=== PATIENT | female | born 1975 | race Caucasian/White ===

== ENCOUNTER 2017-03-31 14:23 | Emergency (ER) | payer OTHER ==
[2017-03-31 14:57] VITALS: BP 117/52
--- NOTE | 2017-03-31 15:03 | UC ---
Back Pain HPI - HPI Summary HPI Summary: 41 year old female presents with complains of right red eye and back pain. - History of Current Complaint Chief Complaint: UCBackPain Stated Complaint: BACK PAIN/RIGHT EYE COMPLAINT Time Seen by Provider: 03/31/17 14:58 Hx Obtained From: Patient Hx Last Menstrual Period: 28 DAYS AGO Onset/Duration: Sudden Onset Timing: Constant Severity Initially: Moderate Severity Currently: Moderate Pain Scale Used: 0-10 Numeric - 7 Character: Sharp Aggravating Factor(s): Movement, Bending Alleviating Factor(s): Rest - Allergies/Home Medications Allergies/Adverse Reactions: Allergies Allergy/AdvReac Type Severity Reaction Status Date / Time No Known Allergies Allergy Verified 03/31/17 14:57 PMH/Surg Hx/FS Hx/Imm Hx Previously Healthy: Yes - Surgical History Surgical History: Yes Surgery Procedure, Year, and Place: C SECTION 05/12/16 - Family History Known Family History: Positive: None Family History: no reported cardio vascular issues in family lineage - Social History Alcohol Use: None Substance Use Type: None Smoking Status (MU): Never Smoked Tobacco - Immunization History Most Recent Influenza Vaccination: 2012 Review of Systems Constitutional: Negative Skin: Negative Eyes: Eye Redness ENT: Negative Respiratory: Negative Cardiovascular: Negative Gastrointestinal: Negative Genitourinary: Negative Motor: Negative Neurovascular: Negative Musculoskeletal: Other: - lower back pain Neurological: Negative Psychological: Negative All Other Systems Reviewed And Are Negative: Yes Physical Exam Triage Information Reviewed: Yes Vital Signs: Initial Vital Signs Temp 37.7 C 03/31/17 14:49 Pulse 76 03/31/17 14:49 Resp 16 03/31/17 14:49 BP 117/52 03/31/17 14:49 Pulse Ox 100 03/31/17 14:49 Vital Signs Reviewed: Yes Eyes: Positive: Conjunctiva Inflamed ENT Exam: Normal Dental Exam: Normal Neck exam: Normal Neck: Positive: 1 Respiratory Exam: Normal Cardiovascular Exam: Normal Abdominal Exam: Normal Musculoskeletal: Positive: Other: - lower back pain Neurological Exam: Normal Psychological Exam: Normal Skin Exam: Normal Back Pain Course/Dx - Differential Dx/Diagnosis Provider Diagnoses: right corneal ulcer. lower back pain Discharge - Discharge Plan Condition: Stable Disposition: HOME Prescriptions: Ciprofloxacin 0.3% OPTH.AVE* [Cipro 0.3% Opth*] 1 drop RIGHT EYE Q2H #1 btl Ibuprofen TAB* [Motrin TAB* 800 MG] 800 mg PO Q6H #30 tab Methocarbamol TAB* [Robaxin 500 MG TAB*] 500 mg PO TID PRN #30 tab PRN Reason: Spasms - Back Patient Education Materials: Muscle Spasm (ED), Eye Pain (ED) Referrals: Dangelo Easley MD [Medical Doctor] - Marilu Bates MD [Primary Care Provider] -
== END 2017-03-31 15:31 | disposition home or self-care (01) ==
LOC: UCCORT 14:23
DX: H16.001 Unspecified corneal ulcer, right eye (principal); M54.5 Low back pain
CPT/HCPCS: 99212; G0463

== ENCOUNTER 2017-07-19 08:06 | Emergency (ER) | payer OTHER ==
[2017-07-19 10:17] VITALS: BP 140/70
--- NOTE | 2017-07-19 10:29 | UC ---
Respiratory Complaint HPI - HPI Summary HPI Summary: Cough and congestion for about 4 days. She has had intermittent fever. She has no chronic lung disease. - History of Current Complaint Chief Complaint: UCGeneralIllness Stated Complaint: FEVER COUGH Time Seen by Provider: 07/19/17 10:09 Hx Obtained From: Patient Hx Last Menstrual Period: 07/05/17 ?: No Onset/Duration: Gradual Onset, Lasting Days Timing: Constant Severity Initially: Moderate Severity Currently: Moderate Pain Intensity: 2 Character: Cough: Nonproductive Aggravating Factors: Deep Breaths, Recumbent Position Alleviating Factors: Upright Position, Spontaneous Resolution Associated Signs And Symptoms: Positive: Fever, URI, Nasal Congestion - Allergies/Home Medications Allergies/Adverse Reactions: Allergies Allergy/AdvReac Type Severity Reaction Status Date / Time No Known Allergies Allergy Verified 07/19/17 10:11 Home Medications: Home Medications Acetaminophen 2 tab PO Q6HR PRN 07/19/17 [History Confirmed 07/19/17] PMH/Surg Hx/FS Hx/Imm Hx Previously Healthy: Yes - Surgical History Surgical History: Yes Surgery Procedure, Year, and Place: C SECTION x 3 - Family History Known Family History: Positive: None Family History: no reported cardio vascular issues in family lineage - Social History Alcohol Use: None Substance Use Type: None Smoking Status (MU): Never Smoked Tobacco - Immunization History Most Recent Influenza Vaccination: 2012 Review of Systems ENT: Sore Throat, Sinus Congestion Respiratory: Cough All Other Systems Reviewed And Are Negative: Yes Physical Exam Triage Information Reviewed: Yes Appearance: Well-Appearing, No Pain Distress, Well-Nourished Vital Signs: Initial Vital Signs Temp 98.6 F 07/19/17 10:12 Pulse 85 07/19/17 10:12 Resp 20 07/19/17 10:12 BP 140/70 07/19/17 10:12 Pulse Ox 100 07/19/17 10:12 Vital Signs Reviewed: Yes Eyes: Positive: Conjunctiva Clear ENT: Positive: Normal ENT inspection, Pharynx normal, TMs normal, Uvula midline. Negative: Nasal congestion, Nasal drainage, TM bulging, TM dull, TM red, Tonsillar swelling, Tonsillar exudate, Trismus, Sinus tenderness Neck: Positive: Supple, Nontender, No Lymphadenopathy Respiratory: Positive: Lungs clear, Normal breath sounds, No respiratory distress, No accessory muscle use. Negative: Respiratory distress, Decreased breath sounds, Accessory muscle use, Crackles, Rhonchi, Stridor, Wheezing Cardiovascular: Positive: No Murmur, Pulses Normal, Brisk Capillary Refill Abdomen Description: Positive: No Organomegaly, Soft. Negative: Distended, Guarding Musculoskeletal: Positive: ROM Intact, No Edema Neurological: Positive: Alert, Muscle Tone Normal. Negative: Fatigued Psychological: Positive: Age Appropriate Behavior Skin: Negative: rashes UC Diagnostic Evaluation - Laboratory O2 Sat by Pulse Oximetry: 100 Respiratory Course/Dx - Course Course Of Treatment: URI. Possible flu. 4 days into symptoms. Supportive care. - Differential Dx/Diagnosis Provider Diagnoses: uri. viral illness. Discharge - Discharge Plan Condition: Good Disposition: HOME Patient Education Materials: Upper Respiratory Infection (ED) Referrals: Marilu Bates MD [Primary Care Provider] -
== END 2017-07-19 11:22 | disposition home or self-care (01) ==
LOC: UCCORT 08:06
DX: J06.9 Acute upper respiratory infection, unspecified (principal)
CPT/HCPCS: 99211; G0463

== ENCOUNTER 2018-03-18 10:50 | Emergency (ER) | payer OTHER ==
[2018-03-18 11:15] VITALS: BP 120/64
--- NOTE | 2018-03-18 11:32 | UC ---
Ear Complaint HPI - HPI Summary HPI Summary: Pt presents for eval of right ear pain and discharge. Pt stes she recently finished a 10 day course for OM. pt states she had discharge and pain - which improved slightly, no painful again. Pt denies fever, chills No sinus pain, PND. Pt has been using cotton ball for diranage. No odor. No jaw pain. No rollins. No other complaints Pt's medications reviewed this visit - History of Current Complaint Chief Complaint: UCGeneralIllness Stated Complaint: EAR COMPLAINT Time Seen by Provider: 03/18/18 11:25 Hx Obtained From: Patient Hx Last Menstrual Period: 07/05/17 ?: No Onset/Duration: Gradual Onset Pain Intensity: 4 - Allergies/Home Medications Allergies/Adverse Reactions: Allergies Allergy/AdvReac Type Severity Reaction Status Date / Time No Known Allergies Allergy Verified 03/18/18 11:11 PMH/Surg Hx/FS Hx/Imm Hx Previously Healthy: Yes - Surgical History Surgical History: Yes Surgery Procedure, Year, and Place: C SECTION x 3 - Family History Known Family History: Positive: Other - non contributory Family History: no reported cardio vascular issues in family lineage - Social History Lives: With Family Alcohol Use: None Substance Use Type: None Smoking Status (MU): Never Smoked Tobacco - Immunization History Most Recent Influenza Vaccination: 2012 Review of Systems Constitutional: Negative ENT: Ear Ache All Other Systems Reviewed And Are Negative: Yes Physical Exam - Summary Physical Exam Summary: Vital Signs Reviewed: Yes A+Ox3, no distress Eyes: Conjunctiva Clear, ANEL. EOM intact and full ENT: Hearing grossly normal Right TM not visualized - pt with thick, white discharge and edema of canal mild TTP no mastoid pain left TM wnl clear, mmoist, uvula midline, no exudate, no erythema Neck: Positive: Supple Respiratory: Positive: No respiratory distress, No accessory muscle use + CTA throughout no w/r Cardiovascular: RRR nl s1, s2 no m/r CBT <2 sec abd soft + BS nt/nd no guarding, no distension Musculoskeletal Exam: KWOK x 4 without difficulty Strength Intact, ROM Intact Neurological: Positive: Alert, + sensation throughout Psychological: Positive: Normal Response To Family Skin: Positive: no rash, no ecchymosis Triage Information Reviewed: Yes Vital Signs: Initial Vital Signs Temp 98.8 F 10/07/18 11:09 Pulse 74 03/18/18 11:09 Resp 15 03/18/18 11:09 BP 120/64 03/18/18 11:09 Pulse Ox 100 03/18/18 11:09 Ear Complaint Course/Dx - Course Course Of Treatment: Pt presents for reevaluation of right ear pt with drainage and discomfort. recent completion of abx oral for OM. VSS. on exam pt with thick white discharge in canals with erythema and edema. nno mastiod pain. will Rx ciprodex. motrin/apap. Pt's family goe to Dr. Mon - will schedule a follow-up if sx persist. pt comfortable and sun greement with plan - Differential Dx/Diagnosis Provider Diagnoses: right otitis externa Discharge - Sign-Out/Discharge Documenting (check all that apply): Patient Departure All imaging exams completed and their final reports reviewed: No Studies - Discharge Plan Condition: Stable Disposition: HOME Prescriptions: Ciproflox/Dexameth OTIC.SUSP* [Ciprodex OTIC.SUSP*] 2 drop .SEE ORDER TID #1 btl Patient Education Materials: Otitis Externa (DC) Referrals: [facility] Ent Provider,[facility] D [Ayalogic, APPLICATION, OTHER] - Marilu Bates MD [Primary Care Provider] - Bill Mon MD [Medical Doctor] - Additional Instructions: - Use ear drops as prescribed for 7 days - Okay to alternate ibuprofen (Advil, motrin)and tylenol every 3 hours for pain. Take with food - It may take 10-14 days for your symptoms to resolved. If you continue to have pain, pain increases, pain drainage -it is recommended you contact and ear/nose/ throat specialist for follow-up - you have been given contact information for 2 different specialist - Billing Disposition and Condition Condition: STABLE Disposition: Home
== END 2018-03-18 12:06 | disposition home or self-care (01) ==
LOC: UCCORT 10:50
DX: H60.91 Unspecified otitis externa, right ear (principal)
CPT/HCPCS: 99212; G0463

== ENCOUNTER 2019-04-23 14:56 | Emergency (ER) | payer OTHER ==
--- OUTSIDE RECORDS SUMMARY | 2019-04-23 15:38 | XMS REPORT | Continuity of Care Document ---
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 [phone] Problems Description No Information Available Social History Type Date Description Comments Sex Unknown ETOH Use Denies alcohol use Tobacco Use Start: Unknown Patient has never smoked Smoking Status Reviewed: 03/07/19 Patient has never smoked Exercise Type/Frequency Exercises regularly Allergies, Adverse Reactions, Alerts Description No Known Drug Allergies Medications Active Medications SIG Qnty Indications Ordering Date Provider Indomethacin ER Take one tab by 180caps M06.4 Ryan Kaur, 03/07/2019 75mg mouth twice MD Capsules ER daily Acetaminophen 2 tablets by Unknown 325mg mouth every 6 Tablets hours as needed for pain/fever Immunizations Description No Information Available Vital Signs Date Vital Result Comment 03/07/2019 9:39am Height 61 inches 5'1" Weight 232.00 lb Heart Rate 82 /min BP Systolic 103 mmHg BP Diastolic 70 mmHg Body Temperature 99.3 F Pain Level 3 O2 % BldC Oximetry 98 % BMI (Body Mass Index) 43.8 kg/m2 03/07/2017 9:01am Height 61 inches 5'1" Weight 218.00 lb Heart Rate 73 /min BP Systolic Sitting 113 mmHg BP Diastolic Sitting 71 mmHg Respiratory Rate 14 /min Pain Level 2 BMI (Body Mass Index) 41.2 kg/m2 Results Description No Information Available Procedures Description No Information Available Medical Devices Description No Information Available Encounters Description No Information Available Assessments Date Code Description Provider 03/07/2019 M06.4 Inflammatory polyarthropathy Ryan Kaur MD Plan of Treatment Future Appointment(s):03/28/2019 9:00 am - Ryan Kaur MD at [facility]03/07/2019 - Ryan Kaur, MDM06.4 Inflammatory polyarthropathyNew Medication:Indomethacin ER 75 mg - Take one tab by mouth twice dailyComments:Indomethacin ER 75mg twice daily--let me know if it causes GI upset; stay on this regularly until follow-upFollow up:follow-up with Natasha in 3 weeks Functional Status Description No Information Available Mental Status Description No Information Available Referrals Description No Information Available
--- OUTSIDE RECORDS SUMMARY | 2019-04-23 15:38 | XMS REPORT | Continuity of Care Document ---
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 Problems Description No Information Available Social History Type Date Description Comments Sex Unknown ETOH Use Denies alcohol use Tobacco Use Start: Unknown Patient has never smoked Smoking Status Reviewed: 03/28/19 Patient has never smoked Exercise Type/Frequency Exercises regularly Allergies, Adverse Reactions, Alerts Description No Known Drug Allergies Medications Active Medications SIG Qnty Indications Ordering Date Provider Indomethacin ER take one tab by 180caps M06.4 Ryan Kaur, 03/07/2019 75mg mouth twice MD Capsules ER daily Acetaminophen 2 tablets by Unknown 325mg mouth every 6 Tablets hours as needed for pain/fever Immunizations Description No Information Available Vital Signs Date Vital Result Comment 03/28/2019 8:34am Height 61 inches 5'1" Weight 234.25 lb Heart Rate 76 /min BP Systolic 112 mmHg BP Diastolic 74 mmHg Body Temperature 97.0 F Pain Level 2 O2 % BldC Oximetry 97 % BMI (Body Mass Index) 44.3 kg/m2 03/07/2019 9:39am Height 61 inches 5'1" Weight 232.00 lb Heart Rate 82 /min BP Systolic 103 mmHg BP Diastolic 70 mmHg Body Temperature 99.3 F Pain Level 3 O2 % BldC Oximetry 98 % BMI (Body Mass Index) 43.8 kg/m2 Results Test Date Facility Test Result H/L Range Note Laboratory test [facility] Hepatitis B Indeterminate Abnormal Immune [address] [place] [address] [phone] Hepatitis C [facility] HCV Index 0.04 s/c Antibody [address] [place] [address] [phone] Hepatitis C Antibody Negative Negative Quantiferon-TB 03/07/2019 [facility] QuantiferonTb Negative Negative [address] [place] [address] [phone] TB1 Ag minus Nil Result -0.04 IU/mL TB2 Ag minus Nil Result -0.10 IU/mL Mitogen minus Nil Result 13.81 IU/mL Nil Result 0.15 IU/mL Laboratory test 03/07/2019 [facility] Erythrocyte Sed 35 mm/Hr High 0-[address] [place] [address] [phone] Hepatitis B Core AB Total Negative Negative 3 C Reactive Protein 16.57 mg/L High <8.01 CBC No Diff 03/07/2019 [facility] White Blood 7.5 10^3/uL Normal 3.5-10.[address] [place] [address] [phone] Red Blood Count 4.66 10^6/uL Normal 3.70-4.87 Hemoglobin 12.7 g/dL Normal 12.0-16.0 Hematocrit 38 % Normal 35-47 Mean Corpuscular Volume 82 fL Normal 80-97 Mean Corpuscular Hemoglobin 27 pg Normal 27-31 Mean Corpuscular HGB Conc 33 g/dL Normal 31-36 Red Cell Distribution Width 14 % Normal 10-15 Platelet Count 263 10^3/uL Normal 150-450 Mean Platelet Volume 8.2 fL Normal 7.4-10.4 Comp Metabolic 03/07/2019 [facility] Sodium 139 mmol/L Normal 135-[address] [place] [address] [phone] Potassium 4.0 mmol/L Normal 3.5-5.0 Chloride 105 mmol/L Normal 101-111 Co2 Carbon Dioxide 28 mmol/L Normal 22-32 Anion Gap 6 mmol/L Normal 2-11 Glucose 87 mg/dL Normal 70-100 Blood Urea Nitrogen 13 mg/dL Normal 6-24 Creatinine 0.66 mg/dL Normal 0.51-0.95 BUN/Creatinine Ratio 19.7 Normal 8-20 Calcium 9.2 mg/dL Normal 8.6-10.3 Total Protein 6.9 g/dL Normal 6.4-8.9 Albumin 3.9 g/dL Normal 3.2-5.2 Globulin 3.0 g/dL Normal 2-4 Albumin/Globulin Ratio 1.3 Normal 1-3 Total Bilirubin 0.40 mg/dL Normal 0.2-1.0 Alkaline Phosphatase 89 U/L Normal 34-104 Alt 11 U/L Normal 7-52 Ast 12 U/L Low 13-39 Egfr Non- 96.8 >60 Egfr 117.2 >60 4 Hla B27 03/07/2019 [facility] Hla B27 Positive [address] [place] [address] [phone] Hla B27 Interp See Comment 6 Laboratory test 03/07/2019 [facility] Ferritin 40.9 ng/mL Normal 11-307 [address] [place] [address] [phone] Iron & Iron 03/07/2019 [facility] Iron 35 g/dL Low 50-212 Binding Capacity [address] [place] [address] [phone] Unsaturated Iron Binding < 285 g/dL Total Iron Binding Capacity 300 g/dL Normal 250-450 Transferrin 214 mg/dL Normal 203-362 % Iron Saturation 12 % Low 15-55 1 Unable to determine if the antibody is present at levels consistent with immunity. Immune status should be further assessed by considering other clinical information or retesting another specimen drawn at a later time. 2 M. tuberculosis infection NOT likely 3 Test Performed by: [facility] [address] [place] [address] Optometric Assistant: Donavon Gan M.D. Ph.D.; CLIA# [id number] 4 Because ethnic data is not always readily available, this report includes an eGFR for both -Americans and non- Americans. The National Kidney Disease Education Program (NKDEP) does not endorse the use of the MDRD equation for patients that are not between the ages of 18 and 70, are , have extremes of body size, muscle mass, or nutritional status, or are non- or non-. According to the National Kidney Foundation, irrespective of diagnosis, the stage of the disease is based on the level of kidney function: Stage Description GFR(mL/min/1.73 m(2)) 1 Kidney damage with normal or decreased GFR 90 2 Kidney damage with mild decrease in GFR 60-89 3 Moderate decrease in GFR 30-59 4 Severe decrease in GFR 15-29 5 Kidney failure <15 (or dialysis) 5 REFERENCE VALUE Not Applicable 6 HLA-B27 antigen was detected. Approximately 8% of the normal population carries the HLA-B27 antigen. HLA-B27 is present in approximately 89% of patients with ankylosing spondylitis, 79% of patients with Laura's syndrome and 42% of patients with juvenile rheumatoid arthritis. However, lacking other data, it is not diagnostic for these disorders. This test does not differentiate B27 alleles. i.e. B*27:05, B*27:06, etc. ADDITIONAL INFORMATION Method: Flow Cytometry Test Performed by: [place] [id number] Optometric Assistant: Donavon Gan M.D. Ph.D.; CLIA# [id number] Procedures Date Code Description Status 03/07/2019 64826 Ultrasound, Extremity, Nonvascular, Real-Time W/Image Completed Doc,Limited Medical Devices Description No Information Available Encounters Description No Information Available Assessments Date Code Description Provider 03/28/2019 M06.4 Inflammatory polyarthropathy Ryan Kaur MD 03/28/2019 M25.551 Pain in right hip Ryan Kaur MD 03/07/2019 M06.4 Inflammatory polyarthropathy Ryan Kaur MD 03/07/2019 G89.4 Chronic pain syndrome Ryan Kaur MD 03/07/2019 R53.83 Fatigue Ryan Kaur MD 03/07/2019 R70.0 Esr raised Ryan Kaur MD Plan of Treatment Future Appointment(s):05/23/2019 8:00 am - Ryan Kaur MD at [facility]03/28/2019 - Ryan Kaur, MDM06.4 Inflammatory polyarthropathyFollow up:8 weeks with Natasha to follow-up New radiographs ordered and added to the order from 03/07/2019M25.551 Pain in right hip Functional Status Description No Information Available Mental Status Description No Information Available Referrals Description No Information Available
--- NOTE | 2019-04-23 15:55 | UC ---
Eye Complaint HPI - HPI Summary HPI Summary: Patient is a 43yo female presenting with R eye "scratchy feeling," soreness, photophobia, redness, and blurry vision x5days. Denies discharge. 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 Denies contact lens use. Denies URI symptoms. Denies L eye symptoms. Patient is unsure of any other details about the ulcers, but states her grandfather had the same thing. - History of Current Complaint Stated Complaint: RT EYE COMPLAINT Hx Obtained From: Patient Hx Last Menstrual Period: 07/05/17 Onset/Duration: Gradual Onset, Lasting Days - Allergies/Home Medications Allergies/Adverse Reactions: Allergies Allergy/AdvReac Type Severity Reaction Status Date / Time No Known Allergies Allergy Verified 04/23/19 15:52 Home Medications: Home Medications Meloxicam, Submicronized [Vivlodex] 1 tab BID 04/23/19 [History Confirmed ] PMH/Surg Hx/FS Hx/Imm Hx Previously Healthy: Yes - Surgical History Surgical History: Yes Surgery Procedure, Year, and Place: C SECTION x 3 - Family History Known Family History: Positive: None, Other - non contributory Family History: no reported cardio vascular issues in family lineage - Social History Lives: With Family Alcohol Use: None Substance Use Type: None Smoking Status (MU): Never Smoked Tobacco - Immunization History Most Recent Influenza Vaccination: 2012 Review of Systems All Other Systems Reviewed And Are Negative: No Constitutional: Positive: Negative Eyes: Positive: Blurred Vision - R eye, Eye Redness - Right, Photophobia - Right , Other - R eye ulcer ENT: Positive: Negative Respiratory: Positive: Negative Cardiovascular: Positive: Negative Neurological: Positive: Negative Physical Exam Triage Information Reviewed: Yes Appearance: Well-Appearing, No Pain Distress, Well-Nourished Vital Signs: Vital Signs (72 hours) 04/23/19 15:53 Temperature 98.6 F Pulse Rate 71 Respiratory 20 Rate Blood Pressure 121/62 (mmHg) O2 Sat by Pulse 100 Oximetry Vital Signs Reviewed: Yes Eye Exam: Other - PERRLA. EOM intact Eyes: Positive: Conjunctiva Inflamed - RIGHT, Other: - fluorescein stain revealed small ulceration noted on R eye. Negative: Discharge ENT: Positive: Hearing grossly normal Neck: Positive: Supple Respiratory Exam: Normal Respiratory: Positive: Lungs clear, Normal breath sounds, No respiratory distress Cardiovascular Exam: Normal Cardiovascular: Positive: RRR Neurological: Positive: Alert Psychological: Positive: Age Appropriate Behavior Eye Complaint Course/Dx - Course Course Of Treatment: I treated with erythromycin ointment and referred to ophthalmology as soon as possible for further eval and treatment. Instructed patient to go to ED with worsening symptoms. Patient voiced understanding and agreed with treatment plan. - Differential Dx/Diagnosis Provider Diagnosis: Corneal ulcer of right eye Discharge ED - Sign-Out/Discharge Documenting (check all that apply): Patient Departure All imaging exams completed and their final reports reviewed: No Studies - Discharge Plan Condition: Stable Disposition: HOME Prescriptions: Erythromycin OPTH OINT* [Erythromycin 0.5% OPTH OINT*] 1 applic RIGHT EYE TID 7 Days #1 ophth.oint Patient Education Materials: Corneal Ulcer (ED) Referrals: Cass REINOSO,Bhavana [Medical Doctor] - As Soon As Possible Additional Instructions: Use the antibiotic ointment as prescribed to treat possible bacterial infection in the eye. It is recommended that you follow up with the ophthalmology referral listed below as soon as possible for further evaluation. Go to the emergency room if you experience new or worsening symptoms. - Billing Disposition and Condition Condition: STABLE Disposition: Home
[2019-04-23 16:00] VITALS: BP 121/62
[2019-04-23] MEDS ORDERED: Fluorescein Sodium TOPICAL* 1 MG TEST STRIP OPHTHALMIC ONE (16:20)
== END 2019-04-23 17:02 | disposition home or self-care (01) ==
LOC: UCCORT 14:56
DX: H16.001 Unspecified corneal ulcer, right eye (principal)
CPT/HCPCS: 99212; A9270-GY; G0463

== ENCOUNTER 2019-05-23 14:56 | Emergency (ER) | payer OTHER ==
--- OUTSIDE RECORDS SUMMARY | 2019-05-23 15:07 | XMS REPORT | Continuity of Care Document ---
:1975 External Reference #:[id number] Author Name Dangelo Easley MD Address [address] [place] [id number] Care Team Providers Name Role Phone Ortiz Cuello CRYSTAL REPORT DEVELOPER - Nurse Care Team Information Donkey Doctor Practitioner Problems Active Problems Provider Date Neuralgia Stefano Lindquist MD Onset: 01/25/2011 Collagen disease Marilu Bates M.D. Onset: 01/12/2017 Inflammatory polyarthropathy Ortiz Cuello FNP Onset: 03/23/2019 Social History Type Date Description Comments Sex Unknown ETOH Use Denies alcohol use Tobacco Use Start: Unknown Patient has never smoked Recreational Drug Use Denies Drug Use Smoking Status Reviewed: 05/07/19 Patient has never smoked Allergies, Adverse Reactions, Alerts Active Allergies Reaction Severity Comments Date NKDA 12/24/2014 Inactive Allergies No Known Drug Allergy 01/25/2011 Medications Active Medications SIG Qnty Indications Ordering Provider Date Tylenol prn Unknown 325mg Tablets Meloxicam Sidlatrice, Anythony, 15mg Tablets Erythromycin Apply A Thin Unknown 5mg/GM Ribbon To The Ointment Right Eye Three Times A Day History Medications Naproxen take one 60tabs M79.672 Ortiz Cuello, 01/02/2019 - tablet by ADITHYA 05/02/2019 500mg Tablets mouth twice a day x 2 weeks then as needed Immunizations CPT Code Status Date Vaccine Lot # [id number] Given 04/04/2019 Influenza Virus Vaccine, Quadrivalent, 36 Mos+, .5ML 61648 Given 03/19/2013 flu vaccination 93400 Given 03/01/2012 Tdap injection 59648 Given 03/01/2012 flu vaccination Vital Signs Date Vital Result Comment 01/02/2019 7:59am BP Systolic Sitting Left Arm 128 mmHg BP Diastolic Sitting Left Arm 78 mmHg Body Temperature 98.1 F Heart Rate 80 /min Respiratory Rate 17 /min Height 62 inches 5'2" Weight 230.00 lb BMI (Body Mass Index) 42.1 kg/m2 BSA (Body Surface Area) 2.03 m2 [place] body weight in kilograms 50 kg O2 % BldC Oximetry 98 % 10/18/2018 1:03pm Heart Rate 68 /min Respiratory Rate 17 /min Height 62 inches 5'2" Weight 230.00 lb BMI (Body Mass Index) 42.1 kg/m2 BSA (Body Surface Area) 2.03 m2 [place] body weight in kilograms 50 kg O2 % BldC Oximetry 99 % Results Description No Information Available Procedures Date Code Description Status 05/07/2019 55549 Eye Exam Est Patient Comprehensive Completed 01/10/2018 58841826 Mammogram Completed Medical Devices Description No Information Available Encounters Type Date Location Provider Dx Diagnosis Office Visit 01/02/2019 [facility] Z01.411 Encntr for yard cleaner 8:[address] radha Alcantar (general) TIMBER SIZER (routine) w abnormal findings M79.672 Pain in left foot M35.9 Systemic involvement of connective tissue, unspecified Z12.31 Encntr screen mammogram for malignant neoplasm of breast Assessments Date Code Description Provider 05/07/2019 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, right eye Dangelo Easley MD 05/02/2019 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, right eye Dangelo Easley MD 01/02/2019 Z01.411 Encounter for gynecological examination Ortiz Cuello FNP (general) (routine) with abnormal findings 01/02/2019 M79.672 Pain in left foot Ortiz Cuello FNP 01/02/2019 M35.9 Systemic involvement of connective Ortiz Cuello FNP tissue, unspecified 01/02/2019 Z12.31 Encounter for screening mammogram for Ortiz Cuello FNP malignant neoplasm of breast Plan of Treatment 05/02/2019 - Dangelo Easley MD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, right eyeComments:- in setting of ebmd- preservative free artificial tears every few hours while awake- erythromycin ointment thin ribbon right eye at night- neomycin/polymyxin/dexamethasone (pink top) 1 drop right eye 2 times daily for 1 week- cornea check next weekFollow up:- cornea check next week; Functional Status Description No Information Available Mental Status Description No Information Available Referrals Refer to Dr Reason for Referral Status Appt Date Ethan Rausch MD re-establish care - +JUVENCIO and increasing joint Closed 03/07/[address] [place] [address] [place] [address] [phone]
--- OUTSIDE RECORDS SUMMARY | 2019-05-23 15:07 | XMS REPORT | Continuity of Care Document ---
:1975 External Reference #:[id number] Author Name Dangelo Easley MD Address [address] [place] [phone] Care Team Providers Name Role Phone Ortiz Cuello PUBLIC HEALTH PHYSICIAN - Nurse Care Team Information Certified Addiction Counselor Practitioner Problems Active Problems Provider Date Neuralgia [...] CPT Code Status Date Vaccine Lot # [id number] Given 04/04/2019 Influenza Virus Vaccine, Quadrivalent, 36 Mos+, .5ML 66075 Given 03/19/2013 flu vaccination 99962 Given 03/01/2012 Tdap injection 74843 Given 03/01/2012 flu vaccination Vital Signs Date Vital Result Comment 01/02/2019 7:59am BP Systolic Sitting Left Arm 128 mmHg BP Diastolic Sitting Left Arm 78 mmHg Body Temperature 98.1 F Heart Rate 80 /min Respiratory Rate 17 /min Height 62 inches 5'2" Weight 230.00 lb BMI (Body Mass Index) 42.1 kg/m2 BSA (Body Surface Area) 2.03 m2 [place] body weight in kilograms 50 kg O2 % BldC Oximetry 98 % 10/18/2018 1:03pm Heart Rate 68 /min Respiratory Rate 17 /min Height 62 inches 5'2" Weight 230.00 lb BMI (Body Mass Index) 42.1 kg/m2 BSA (Body Surface Area) 2.03 m2 [place] body weight in kilograms 50 kg O2 % BldC Oximetry 99 % Results Description No Information Available Procedures Date Code Description Status 05/07/2019 14711 Eye Exam Est Patient Comprehensive Completed 05/02/2019 21467 Eye Exam New Patient Comprehensive Completed 01/10/2018 56128556 Mammogram Completed Medical Devices Description No Information Available Encounters Type Date Location Provider Dx Diagnosis Office Visit 01/02/2019 [facility], Z01.411 Encntr for urogynecology physician 8:[address] Ortiz exam (general) HIGH WIRE ARTIST (routine) w abnormal findings M79.672 Pain in [...] malignant neoplasm of breast Plan of Treatment 05/07/2019 - Dangelo Easley MD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, right eyeComments:- much improved- in setting of ebmd- preservative free artificial tears a few times daily- erythromycin ointment thin ribbon right eye at night- neomycin/polymyxin/dexamethasone (pink top) 1 drop righteye 1 time daily for 1 week; then ok to stop- when erythromycin ointment is complete, ok to change to over the counter lubricating ointment - ointments include mya 128 - lubricating ointments include lacri-lube, systane, refresh pmFollow up:please call with ? or concerns Functional Status Description No Information Available Mental Status Description No Information Available Referrals Refer to Dr Reason for Referral Status Appt Date Ethan Rausch MD re-establish care - +JUVENCIO and increasing joint Closed 03/07/2019 pains [address] [place] [address] [place] [address] [phone]
[2019-05-23 15:11] VITALS: BP 124/74
--- NOTE | 2019-05-23 15:37 | ED ---
Throat Pain/Nasal Congestion - HPI Summary HPI Summary: 43 yr old female with the complaint of sore throat. Onset over the past few days. No drooling, no stridor. She is concerned for strep throat. She has no other complaints. No NVD. Her symptoms are moderate. - History of Current Complaint Chief Complaint: UCGeneralIllness Time Seen by Provider: 05/23/19 15:18 - Allergies/Home Medications Allergies/Adverse Reactions: Allergies Allergy/AdvReac Type Severity Reaction Status Date / Time No Known Allergies Allergy Verified 05/23/19 15:11 Home Medications: Home Medications Ibuprofen TAB* [Motrin TAB* 800 MG] 1,000 mg PO ONCE 05/23/19 [History Confirmed 05/23/19] PMH/Surg Hx/FS Hx/Imm Hx - Surgical History Surgery Procedure, Year, and Place: C SECTION x 3 Infectious Disease History: No Infectious Disease History: Denies: Traveled Outside the [place] in Last 30 Days - Family History Known Family History: Positive: None, Other - non contributory Family History: no reported cardio vascular issues in family lineage - Social History Alcohol Use: None Substance Use Type: Reports: None Smoking Status (MU): Never Smoked Tobacco Review of Systems Constitutional: Negative Positive: Sore Throat All Other Systems Reviewed And Are Negative: Yes Physical Exam Triage Information Reviewed: Yes Vital Signs On Initial Exam: Initial Vitals Temp Pulse Resp BP Pulse Ox 97.2 F 98 17 124/74 100 05/23/19 15:08 05/23/19 15:08 05/23/19 15:08 05/23/19 15:08 05/23/19 15:08 Vital Signs Reviewed: Yes Appearance: Positive: Well-Appearing, No Pain Distress Skin: Positive: Warm, Skin Color Reflects Adequate Perfusion Head/Face: Positive: Normal Head/Face Inspection Eyes: Positive: EOMI ENT: Positive: Pharyngeal erythema, TMs normal. Negative: Nasal congestion Neck: Positive: Nontender Respiratory/Lung Sounds: Positive: Clear to Auscultation, Breath Sounds Present Cardiovascular: Positive: RRR. Negative: Murmur Abdomen Description: Negative: Distended Musculoskeletal: Positive: Strength/ROM Intact Neurological: Positive: Sensory/Motor Intact, Alert, Oriented to Person Place, Time, CN Intact II-III, Normal Gait, Speech Normal Psychiatric: Positive: Normal Diagnostics - Vital Signs Vital Signs Temp Pulse Resp BP Pulse Ox 05/23/19 15:08 97.2 F 98 17 124/74 100 - Laboratory Lab Results: Lab Results 05/23/19 Range/Units 15:12 Group A Strep Rapid Positive A (Negative) Lab Statement: Any lab studies that have been ordered have been reviewed, and results considered in the medical decision making process. EENT Course/Dx - Course Course Of Treatment: 43 yr old female with sore throat postive strep. DC home in good condition. Amox script sent. - Diagnoses Provider Diagnoses: Strep pharyngitis Discharge ED - Sign-Out/Discharge Documenting (check all that apply): Patient Departure All imaging exams completed and their final reports reviewed: No Studies - Discharge Plan Condition: Good Disposition: HOME Prescriptions: Amoxicillin PO (*) [Amoxicillin 500 MG CAP*] 500 mg PO TID #30 cap Patient Education Materials: Strep Throat (DC) Referrals: Marilu Bates MD [Primary Care Provider] - 2 Days - Billing Disposition and Condition Condition: GOOD Disposition: Home
== END 2019-05-23 15:43 | disposition home or self-care (01) ==
LOC: UCCORT 14:56
DX: J02.0 Streptococcal pharyngitis (principal)
CPT/HCPCS: 87651; 99212; G0463